=== PATIENT | male | born 1980 | race Two or more races ===

== ENCOUNTER 2022-06-16 16:40 | Emergency (ER) | payer OTHER ==
[~2022-06-16] VITALS: Ht 180.3 cm; Wt 143.0 kg
[2022-06-16 19:18] LABS: Basophils # (auto) 0 10 ^3/uL (0-0.2); Basophils % (auto) 0.6 % (0.0-2.0); Eosinophils # (auto) 0.1 10 ^3/uL (0-0.8); Lymphocytes # (auto) 2.8 10 ^3/uL (0.4-5.4); Monocytes # (auto) 0.8 10 ^3/uL (0-1.3); Nucleated Red Blood Cells % 0.1 %; Red Blood Cells 4.79 10^6/uL (4.5-5.90)
[2022-06-16 19:20] LABS: Hematocrit 40.1 % (41.0-53.0); Hemoglobin 12.9 g/dL (13.5-17.5); Lymphocytes % (auto) 42.1 % (10.0-50.0); Mean Corpuscular Hgb Conc. 32.2 g/dL (32.0-36.0); Mean Corpuscular Volume 83.8 fL (80.0-100.0); Monocytes % (auto) 11.5 % (0.0-12.0); Neutrophils % (auto) 44.8 % (37.0-80.0); Red Cell Distribution Width 16.2 % (11.8-14.3); White Blood Cell 6.6 10^3/uL (4.4-10.8)
[2022-06-16 19:33] LABS: Albumin 3.6 g/dL (3.4-5.0); BUN/Creatinine Ratio 14.1; Calcium 9.1 mg/dL (8.5-10.1); Potassium 4.3 mmol/L (3.5-5.1)
[2022-06-16 19:35] VITALS: BP 138/79
[2022-06-16 19:35] LABS: Bilirubin, Total 0.2 mg/dL (0.2-1.0); Total Protein 8.4 g/dL (6.4-8.2)
[2022-06-16 20:21] LABS: Urine Bacteria NONE SEEN /hpf (None Seen); Urine Blood 3+ /uL (Negative); Urine Budding Yeast OCCASIONAL /hpf (None Seen); Urine Specific Gravity 1.013 (1.001-1.035); Urine WBC 7 /hpf (0 - 3)
[2022-06-16] MEDS ORDERED: KETOROLAC TROMETH 30 MG/ML 1ML VIAL IV ONE (20:45)
== END 2022-06-16 21:14 ==
LOC: EEVIPCON 16:40 → ER 16:40
DX: T83.091A Other mechanical complication of indwelling urethral catheter, initial encounter (principal)
CPT/HCPCS: 36415; 71045; 80053; 81001; 83880; 85025; 96374; 99284; J1885

== ENCOUNTER 2022-06-20 16:44 | Emergency (ER) | payer OTHER ==
[~2022-06-20] VITALS: Ht 180.3 cm; Wt 140.0 kg
[2022-06-20 18:14] LABS: Basophils # (auto) 0.1 10 ^3/uL (0-0.2); Basophils % (auto) 1.1 % (0.0-2.0); Eosinophils # (auto) 0.1 10 ^3/uL (0-0.8); Mean Corpuscular Volume 83.4 fL (80.0-100.0); Nucleated Red Blood Cells % 0.2 %
[2022-06-20 18:16] LABS: Eosinophils % (auto) 1.4 % (0.0-7.0); Hematocrit 41.2 % (41.0-53.0); Lymphocytes # (auto) 3.3 10 ^3/uL (0.4-5.4); Lymphocytes % (auto) 42.8 % (10.0-50.0); Mean Corpuscular Hemoglobin 26.2 pg (28.0-32.0); Mean Corpuscular Hgb Conc. 31.5 g/dL (32.0-36.0); Monocytes # (auto) 0.6 10 ^3/uL (0-1.3); Monocytes % (auto) 7.4 % (0.0-12.0); Neutrophils # (auto) 3.6 10 ^3/uL (1.6-8.6); Neutrophils % (auto) 47.3 % (37.0-80.0); Red Blood Cells 4.95 10^6/uL (4.5-5.90); Red Cell Distribution Width 16.2 % (11.8-14.3); White Blood Cell 7.7 10^3/uL (4.4-10.8)
[2022-06-20 18:18] LABS: Urine Bacteria FEW /hpf (None Seen); Urine Blood 3+ /uL (Negative); Urine Mucus FEW (None Seen); Urine Specific Gravity 1.021 (1.001-1.035); Urine WBC 36 /hpf (0 - 3)
[2022-06-20 18:37] LABS: Partial Thromboplastin Time 29.1 sec (24.6-33.4)
[2022-06-20 18:43] LABS: Albumin 3.7 g/dL (3.4-5.0); Calcium 9.6 mg/dL (8.5-10.1); Potassium 4.3 mmol/L (3.5-5.1)
[2022-06-20 18:46] LABS: BUN/Creatinine Ratio 12.2; Bilirubin, Total 0.2 mg/dL (0.2-1.0); Total Protein 8.7 g/dL (6.4-8.2)
[2022-06-20] MEDS ORDERED: CIPR-173 PO (19:18)
[2022-06-20] MEDS ORDERED: CIPROFLOXACIN HCL 500 MG TAB PO ONE (19:30)
[2022-06-20 20:30] VITALS: BP 127/76
[2022-06-20] MEDS ORDERED: ACETAMINOPHEN 325 MG TAB PO ONE (20:45)
== END 2022-06-20 20:50 ==
LOC: EEVIPCON 16:44 → ER 16:44
DX: N35.919 Unspecified urethral stricture, male, unspecified site (principal); N39.0 Urinary tract infection, site not specified; Z79.2 Long term (current) use of antibiotics
CPT/HCPCS: 36415; 80053; 81001; 85025; 85610; 85730